=== PATIENT | male | born 1965 | race Caucasian/White ===

== ENCOUNTER 2017-01-04 07:20 | Observation (INO) ==
--- NOTE | 2017-01-04 07:30 | Emergency Department Note ---
Disposition Clinical Impression: Respiratory alkalosis, Exertional dyspnea Disposition: Admitted As Inpatient Condition: Good Referrals: NONE,PCP [Primary Care Provider] - Forms: ED Satisfaction Letter Time of Disposition: 10:55 SOB HPI - General Chief Complaint: ED Shortness of Breath/Dyspnea Stated Complaint: BRIT Time Seen by Provider: 01/04/17 07:25 Source: patient, family, EMS Mode of arrival: EMS Limitations: no limitations Nursing Notes Reviewed: Yes Vital Signs Reviewed: Yes - History of Present Illness 51-year-old previous history of heart or lung disease this had shortness of breath for a couple months. Saw his family doctor they did a stress test which was negative. Today he felt like he could not breathe he did have some vomiting last night and this morning he is very short of breath says he doesn't feel like eating get air into his lungs. Patient denies any chest pain. Patient's tachycardic and tachypneic on arrival. Patient denies any history of blood clots. He denies any risk factors for blood clots. Pt Subjective Complaint: shortness of breath Onset (ago): Just INTENSIVE CARE NURSE Severity: moderate, severe Consistency/Duration: constant Improves with: nothing Worsens with: exertion Associated symptoms: Denies: chest pain Treatment prior to arrival: none Cough present: No - Related Data Allergies Allergy/AdvReac Type Severity Reaction Status Date / Time No Known Allergies Allergy Verified 09/06/15 08:44 All systems ED: reviewed and negative except as stated. Constitutional: Denies: fever, chills, weakness, weight change Eyes: Denies: eye pain, eye discharge, vision change ENT ED: Denies: ear pain, throat pain, dental pain, hearing loss, epistaxis, congestion, dysphagia Cardiovascular: Reports: dyspnea on exertion. Denies: chest pain, palpitations , edema, syncope Respiratory: Reports: dyspnea. Denies: cough, wheezes, hemoptysis, stridor Gastrointestinal: Reports: nausea, vomiting. Denies: abdominal pain, diarrhea, constipation, hematemesis, melena, hematochezia Genitourinary: Denies: urgency, dysuria, frequency, hematuria Musculoskeletal: Denies: back pain, neck pain, arthralgia, myalgia Integumentary: Denies: rash, abrasion, lesions Neurological: Denies: headache, weakness, numbness, paresthesias, confusion, abnormal gait, vertigo Psychiatric: Denies: anxiety, depression, suicidal thoughts, homicidal thoughts , auditory hallucinations, visual hallucinations Endocrine: Denies: fatigue Hematological/Lymphatic: Denies: easy bleeding, easy bruising Allergic/Immunologic: Denies: facial swelling, urticaria Past Medical History - Past Medical History Surgical history: Reports: cholecystectomy, herniorrhaphy Psychiatric history: Reports: no psych history - Social History Smoking Status: Unknown if ever smoked Smokeless Tobacco Status: No Alcohol use: Reports: occasionally Physical Exam - General Limitations: no limitations General appearance: alert, in no apparent distress - Head Head exam: atraumatic, normocephalic, normal inspection - Eye Eye exam: Present: normal appearance, PERRL, EOMI - ENT ENT exam: normal exam, normal oropharynx, mucous membranes moist - Neck Neck exam: Present: normal inspection, full ROM, trachea midline - Chest Chest inspection: Present: normal inspection, symmetric chest wall rise - Respiratory Respiratory exam: Present: normal lung sounds bilaterally, other (Male) - Cardiovascular Cardiovascular exam: Present: tachycardia - Abdominal Exam Abdominal exam: Present: soft, Non-Tender. Absent: tenderness, distention, guarding, rebound, rigidity - Extremities Exam Extremities exam: Present: normal inspection, full ROM. Absent: tenderness, pedal edema - Expanded Lower Extremity Exam Neurovascular/Tendon exam: Absent: motor deficit, sensory deficit, tendon deficit Gait: not tested/not observed - Back Exam Back exam: Present: normal inspection, full ROM. Absent: tenderness - Neurological Exam Neurological exam: Present: alert, oriented X3 - Psychiatric Psychiatric exam: Present: normal affect, normal mood - Skin Skin exam: Present: warm, dry, intact, normal color Course - Reevaluation(s) Reevaluation #1: 51-year-old who comes in with significant shortness of breath although he says she's had shortness of breath for about 2 months who is tachycardic and very dyspneic. Concern in the differential would be a pulmonary embolism we'll go ahead and treat him prophylactically with heparin while we obtain the CTA. Denies any bleeding episodes no hemoptysis. Time: 07:36 Reevaluation #2: Patient vital signs improved significantly we did get a blood gas showed a pH of 7.61 and a low CO2 consistent with a hyperventilation. He slowed his breathing down we did give him a little Ativan to relax him and his heart rate came down to 98. His lactate is elevated at 7.2 he was very agitated when he arrived. His vitals otherwise were stable his blood pressure was normal. Does have an elevated white count of 15 4. Point we are not going to give him 30 ML' s per kilogram based on normal blood pressure and markedly improved heart rate. Time: 08:16 Reevaluation #3: Repeat lactate was 1.5. Patient does have exertional dyspnea for the last month rather go ahead and admit. Hospital's request that we get a repeat blood gas and a urine tox screen. Time: 10:52 - Consultations Consultation #1: Discussed with Dr. Upton, admit. Time: 10:53 Vital Signs Temperature 97.8 F 01/04/17 07:23 Pulse Rate 126 01/04/17 07:23 Respiratory Rate 26 01/04/17 07:23 Blood Pressure 121/68 01/04/17 07:23 O2 Sat by Pulse Oximetry 98 01/04/17 07:23 Temperature 97.8 F 01/04/17 07:23 Pulse Rate 114 01/04/17 10:28 Respiratory Rate 20 01/04/17 10:28 Blood Pressure 123/77 01/04/17 10:28 O2 Sat by Pulse Oximetry 98 01/04/17 10:28 Oxygen Delivery Oxygen Delivery Room Air Shortness of Breath/Dyspnea - Lab Data Result diagrams: 01/04/17 07:44 01/04/17 07:44 Lab Results 01/04/17 01/04/17 01/04/17 Range/Units 07:40 07:44 07:44 WBC 15.4 H (4.3-11.1) K/mcL RBC 5.31 (4.19-5.50) M/mcL Hgb 16.2 (12.9-16.9) g/dL Hct 45.1 (37.5-50.1) % MCV 84.9 (83.0-100.0) fL MCH 30.5 (28.0-33.3) pg MCHC 35.9 H (31.6-35.5) g/dL RDW 12.0 (11.5-14.5) % Plt Count 259 (140-400) K/mcL MPV 8.9 L (9.4-12.4) fL Immature Gran % 0.5 (0-4) % Seg Neutrophils % 81.9 % Lymphocytes % 14.5 % Monocytes % 2.7 % Eosinophils % 0.1 % Basophils % 0.3 % Neutrophils # 12.6 H (1.6-8.9) K/mcL Lymphocytes # 2.2 (0.6-4.6) K/mcL Monocytes # 0.4 (0.0-1.3) K/mcL Eosinophils # 0.0 (0.0-0.6) K/mcL Basophils # 0.0 (0.0-0.2) K/mcL PT (9.4-12.1) Seconds INR APTT (26.0-36.0) Seconds D-Dimer (0-500) ng/mLFEU ABG pH 7.61 H* (7.32-7.45) pH Units ABG pCO2 15 L* (35-45) mmHg ABG pO2 128 H (85-104) mmHg ABG HCO3 15.1 L (21-27) mEQ/L ABG Total CO2 15.6 L (20-26) mEq/L ABG O2 Saturation 99 H (95-98) % ABG Base Excess -2.3 L (-2.0 to 3.0) mEq/L Carboxyhemoglobin 1.1 (0-5) % Liter Flow 3 L/MIN Blood Gas Modality NC Sodium 138 (136-145) mEq/L Potassium 3.5 (3.5-4.5) mEq/L Chloride 100 (98-109) mEq/L Carbon Dioxide 17 L (19-29) mEq/L BUN 17 (8-26) mg/dL Creatinine 1.25 (0.72-1.25) mg/dL Est GFR ( Amer) > 60 (> 60) Est GFR (Non-Af Amer) > 60 (> 60) BUN/Creatinine Ratio 14 (6-26) Glucose 205 H (70-99) mg/dL Calculated Osmolality 293 (280-300) Lactic Acid (0.5-2.2) mmol/L Calcium 9.8 (8.6-10.8) mg/dL Total Bilirubin 0.7 (0.2-1.2) mg/dL Direct Bilirubin 0.3 (0.0-0.5) mg/dL Indirect Bilirubin 0.4 (0.0-1.2) mg/dL AST 37 H (5-34) Units/L ALT 41 (0-55) Units/L Alkaline Phosphatase 96 (38-126) Units/L Troponin I (0-0.03) ng/mL B-Natriuretic Peptide (0-100) pg/mL Serum Total Protein 8.0 (6.0-8.3) g/dL Albumin 4.3 (3.5-5.0) g/dL Globulin 3.7 H (2.4-3.5) g/dL Albumin/Globulin Ratio 1.2 (1.1-2.2) 01/04/17 01/04/17 01/04/17 Range/Units 07:44 07:44 07:44 WBC (4.3-11.1) K/mcL RBC (4.19-5.50) M/mcL Hgb (12.9-16.9) g/dL Hct (37.5-50.1) % MCV (83.0-100.0) fL MCH (28.0-33.3) pg MCHC (31.6-35.5) g/dL RDW (11.5-14.5) % Plt Count (140-400) K/mcL MPV (9.4-12.4) fL Immature Gran % (0-4) % Seg Neutrophils % % Lymphocytes % % Monocytes % % Eosinophils % % Basophils % % Neutrophils # (1.6-8.9) K/mcL Lymphocytes # (0.6-4.6) K/mcL Monocytes # (0.0-1.3) K/mcL Eosinophils # (0.0-0.6) K/mcL Basophils # (0.0-0.2) K/mcL PT (9.4-12.1) Seconds INR APTT (26.0-36.0) Seconds D-Dimer (0-500) ng/mLFEU ABG pH (7.32-7.45) pH Units ABG pCO2 (35-45) mmHg ABG pO2 (85-104) mmHg ABG HCO3 (21-27) mEQ/L ABG Total CO2 (20-26) mEq/L ABG O2 Saturation (95-98) % ABG Base Excess (-2.0 to 3.0) mEq/L Carboxyhemoglobin (0-5) % Liter Flow L/MIN Blood Gas Modality Sodium (136-145) mEq/L Potassium (3.5-4.5) mEq/L Chloride (98-109) mEq/L Carbon Dioxide (19-29) mEq/L BUN (8-26) mg/dL Creatinine (0.72-1.25) mg/dL Est GFR ( Amer) (> 60) Est GFR (Non-Af Amer) (> 60) BUN/Creatinine Ratio (6-26) Glucose (70-99) mg/dL Calculated Osmolality (280-300) Lactic Acid 7.2 H* (0.5-2.2) mmol/L Calcium (8.6-10.8) mg/dL Total Bilirubin (0.2-1.2) mg/dL Direct Bilirubin (0.0-0.5) mg/dL Indirect Bilirubin (0.0-1.2) mg/dL AST (5-34) Units/L ALT (0-55) Units/L Alkaline Phosphatase (38-126) Units/L Troponin I 0.01 (0-0.03) ng/mL B-Natriuretic Peptide < 10 (0-100) pg/mL Serum Total Protein (6.0-8.3) g/dL Albumin (3.5-5.0) g/dL Globulin (2.4-3.5) g/dL Albumin/Globulin Ratio (1.1-2.2) 01/04/17 01/04/17 Range/Units 07:44 10:07 WBC (4.3-11.1) K/mcL RBC (4.19-5.50) M/mcL Hgb (12.9-16.9) g/dL Hct (37.5-50.1) % MCV (83.0-100.0) fL MCH (28.0-33.3) pg MCHC (31.6-35.5) g/dL RDW (11.5-14.5) % Plt Count (140-400) K/mcL MPV (9.4-12.4) fL Immature Gran % (0-4) % Seg Neutrophils % % Lymphocytes % % Monocytes % % Eosinophils % % Basophils % % Neutrophils # (1.6-8.9) K/mcL Lymphocytes # (0.6-4.6) K/mcL Monocytes # (0.0-1.3) K/mcL Eosinophils # (0.0-0.6) K/mcL Basophils # (0.0-0.2) K/mcL PT 10.3 (9.4-12.1) Seconds INR 1.0 APTT 22.3 L (26.0-36.0) Seconds D-Dimer 439 (0-500) ng/mLFEU ABG pH (7.32-7.45) pH Units ABG pCO2 (35-45) mmHg ABG pO2 (85-104) mmHg ABG HCO3 (21-27) mEQ/L ABG Total CO2 (20-26) mEq/L ABG O2 Saturation (95-98) % ABG Base Excess (-2.0 to 3.0) mEq/L Carboxyhemoglobin (0-5) % Liter Flow L/MIN Blood Gas Modality Sodium (136-145) mEq/L Potassium (3.5-4.5) mEq/L Chloride (98-109) mEq/L Carbon Dioxide (19-29) mEq/L BUN (8-26) mg/dL Creatinine (0.72-1.25) mg/dL Est GFR ( Amer) (> 60) Est GFR (Non-Af Amer) (> 60) BUN/Creatinine Ratio (6-26) Glucose (70-99) mg/dL Calculated Osmolality (280-300) Lactic Acid 1.5 (0.5-2.2) mmol/L Calcium (8.6-10.8) mg/dL Total Bilirubin (0.2-1.2) mg/dL Direct Bilirubin (0.0-0.5) mg/dL Indirect Bilirubin (0.0-1.2) mg/dL AST (5-34) Units/L ALT (0-55) Units/L Alkaline Phosphatase (38-126) Units/L Troponin I (0-0.03) ng/mL B-Natriuretic Peptide (0-100) pg/mL Serum Total Protein (6.0-8.3) g/dL Albumin (3.5-5.0) g/dL Globulin (2.4-3.5) g/dL Albumin/Globulin Ratio (1.1-2.2) - EKG Data EKG attestation: Yes I reviewed and interpreted this EKG. EKG shows normal: Reports: sinus rhythm Rate: Reports: tachycardia Rhythm: Reports: NSR Interpretation: Reports: no acute changes
[2017-01-04] MEDS ORDERED: *HR* Heparin 5,000 UNIT/ML VIAL IVP ONE (07:31)
[2017-01-04] MEDS ORDERED: *HR* Heparin 5,000 UNIT/ML VIAL IVP PRN (07:31)
[2017-01-04] MEDS ORDERED: *HR* LORazepam 2 MG/ML VIAL IVP ONE (07:33)
[2017-01-04] MEDS ORDERED: Ondansetron 4 MG/2 ML VIAL IVP ONE (07:33)
[2017-01-04] MEDS ORDERED: Heparin 25,000 UNIT/500 ML D5W 25,000 UNIT/500 ML MLS IVC SCH (07:45)
[2017-01-04 07:50] LABS: ABG Base Excess -2.3 mEq/L (-2.0 to 3.0); ABG HCO3 15.1 mEQ/L (21-27); ABG Oxygen Saturation 99 % (95-98); ABG PO2 128 mmHg (85-104); ABG TCO2 15.6 mEq/L (20-26); Carboxyhemoglobin 1.1 % (0-5)
[2017-01-04 07:51] LABS: Blood Gas Liter Flow 3 L/MIN
[2017-01-04 07:53] LABS: ABG PCO2 15 mmHg (35-45)
[2017-01-04 07:54] LABS: ABG PH 7.61 pH Units (7.32-7.45)
[2017-01-04 07:55] LABS: Basophils % 0.3 %; Eosinophils % 0.1 %; Hematocrit 45.1 % (37.5-50.1); Hemoglobin 16.2 g/dL (12.9-16.9); Immature Granulocytes % 0.5 % (0-4); Lymphocytes # 2.2 K/mcL (0.6-4.6); Lymphocytes % 14.5 %; Mean Corpuscular HGB Conc 35.9 g/dL (31.6-35.5); Mean Corpuscular Hemoglobin 30.5 pg (28.0-33.3); Mean Corpuscular Volume 84.9 fL (83.0-100.0); Mean Platelet Volume 8.9 fL (9.4-12.4); Monocytes # 0.4 K/mcL (0.0-1.3); Monocytes % 2.7 %; Neutrophils # 12.6 K/mcL (1.6-8.9); Platelet Count 259 K/mcL (140-400); Red Blood Count 5.31 M/mcL (4.19-5.50); Segmented Neutrophils % 81.9 %
[2017-01-04 08:10] LABS: Alanine Aminotransferase 41 Units/L (0-55); Albumin 4.3 g/dL (3.5-5.0); Albumin/Globulin Ratio 1.2 (1.1-2.2); Alkaline Phosphatase 96 Units/L (38-126); Aspartate Amino Transferase 37 Units/L (5-34); BUN/Creatinine Ratio 14 (6-26); Bilirubin,Direct 0.3 mg/dL (0.0-0.5); Bilirubin,Indirect 0.4 mg/dL (0.0-1.2); Bilirubin,Total 0.7 mg/dL (0.2-1.2); Blood Urea Nitrogen 17 mg/dL (8-26); Calcium 9.8 mg/dL (8.6-10.8); Carbon Dioxide 17 mEq/L (19-29); Chloride 100 mEq/L (98-109); Globulin 3.7 g/dL (2.4-3.5); Glucose 205 mg/dL (70-99); Osmolality,Calculated 293 (280-300); Potassium 3.5 mEq/L (3.5-4.5); Prothrombin Time 10.3 Seconds (9.4-12.1); Sodium 138 mEq/L (136-145); eGFR For African Americans > 60 (> 60); eGFR For Non-African Americans > 60 (> 60)
[2017-01-04 08:12] LABS: Activated Partial Thrombo Time 22.3 Seconds (26.0-36.0)
[2017-01-04] MEDS ORDERED: Vancomycin 1,000 MG in D5% in Water 250 ML IVPB ONE (08:18)
[2017-01-04] MEDS ORDERED: Piperacillin/Tazobactam 3.375 GM in D5% in Water (Mini-Bag+) 100 ML IVPB ONE (08:18)
[2017-01-04 11:10] LABS: Acetaminophen < 1.0 mcg/mL (10-30); Salicylate < 5.0 mg/dL (15-30)
[2017-01-04 11:18] LABS: ABG Base Excess -0.1 mEq/L (-2.0 to 3.0); ABG HCO3 22.3 mEQ/L (21-27); ABG Oxygen Saturation 98 % (95-98); ABG PCO2 30 mmHg (35-45); ABG PH 7.48 pH Units (7.32-7.45); ABG PO2 94 mmHg (85-104); ABG TCO2 23.2 mEq/L (20-26); Blood Gas FiO2 32 %; Blood Gas Liter Flow 3 L/MIN
[2017-01-04] MEDS ORDERED: Naloxone 0.4 MG/ML INJ IVP PRN (11:48)
[2017-01-04] MEDS ORDERED: Ondansetron 4 MG/2 ML VIAL IVP PRN (11:50)
[2017-01-04] MEDS ORDERED: Acetaminophen 325 MG TABLET PO PRN (11:50)
[2017-01-04] MEDS ORDERED: *HR* LORazepam 0.5 MG TABLET PO PRN (11:52)
--- NOTE | 2017-01-04 11:55 | Internal Med History&Physical ---
<Martina Weiner - Last Filed: 01/04/17 12:22> Date of Encounter: 01/04/17 Time of Encounter: 11:54 Assessment and Plan (1) Hyperventilation syndrome Current visit: Yes Status: Acute 1 patient presented Tachycardic, tachypneic ABG-respiratory alkalosis pH of 7.6 bicarbonate was 15-suspect this is related to anxiety. Patient was given Ativan as well as oxygen ABG improved as well as her respiratory state and heart rate. His chest x-rays negative CTA negative for PE. We will continue with Ativan as needed 2 oxygen titrate to maintain SPO2 greater than 90% 3 we will trend troponins 4 we will check echo (2) Bronchitis Current visit: Yes Status: Acute 1 patient did have elevated white count at 15.4 chest x-ray was clear CTA was negative for PE he has had a nonproductive cough we will continue with Levaquin 2 bronchodilators 3 oxygen as needed to maintain SPO2 greater than 92% 4 monitor CBC (3) TRINITY (obstructive sleep apnea) Current visit: No Status: Chronic 1 we will continue with CPAP Internal Medicine - H&P: HPI Chief complaint: SOB Admitted From: Emergency Dept Plans for Post Hospital Care: Home History of present illness: Mr. Golden is a 51 year old male with past medical history obstructive sleep apnea. He has been experiencing increasing shortness of breath for past couple months. He did follow up with his family doctor and had an cardiac stress test which was negative. Last night he did have episode of nausea and vomiting vomiting presently 4 times undigested food. Denies any fevers chills diarrhea chest pain palpitations or abdominal pain. This a.m. patient was awakened having some difficulty breathing. He denies any chest pain or palpitations at the time. Upon arrival to the ER patient was tachycardic and tachypneic. Denied any past history of blood clots or PE. ABG was obtained which was alkalotic. PH was 7.6 O2 128 PCO2 was 15 bicarbonate was 15,009%. Lab work revealed a day after meals 15.4 bicarbonate was 17. Patient was initiated on heparin and CTA was performed rule out PE. Which it was negative. Chest x-ray appeared clear. Patient was given some Ativan which did improve his respiratory status as well as tachycardia. He was given IV fluids as well as antibiotics blood cultures were obtained. He has been admitted for further workup and evaluation. Presently patient does not appear to be in respiratory distress denies any chest pain. He does admit to occasional palpitations in the past as well as exertional dyspnea. He denied any drug use or new medication, however he did admit to that he did take a Viagra last night. Presently has lung sounds are clear heart sounds are regular S1 and S2 with no rubs clicks, murmurs noted abdomen soft and nontender no pedal edema noted he sometimes tach on the monitor he continue with no ST-T wave abnormalities. Past Med Surg Social Fam HX - Past Medical History Medical history: other Psychiatric history: no psych history - Past Surgical History Surgical History: cholecystectomy, herniorrhaphy - Social History Smoking Status: Unknown if ever smoked Smokeless Tobacco Status: No Alcohol use: occasionally Drug use: none - Family History Father Living Status: Cause of : Brain cancer Internal Medicine - H&P: Meds No Known Home Drugs 01/04/17 [History] Allergies No Known Allergies Allergy (Verified 01/04/17 11:23) All Systems PM: A 10-system review of systems was performed and is negative for pertinent findings except as documented above in the HPI. - Constitutional Constitutional: no chills, no fever(s), no night sweats - EENT Eyes: no change in vision, no discharge, no pain, no photophobia Ears: no ear discharge, no ear pain, no tinnitus Nose, mouth and throat: no dysphagia, no nasal discharge, no neck pain, no sore throat - Cardiovascular Cardiovascular ROS IM: no chest pain, no diaphoresis, no dyspnea, no lightheadedness, no palpitations, no syncope - Respiratory Respiratory: cough, dyspnea - Gastrointestinal Gastrointestinal: no abdominal pain, no diarrhea, no hematemesis, no hematochezia, no melena, no nausea, no vomiting - Musculoskeletal Musculoskeletal ROS IM: no numbness, no tingling - Integumentary Integumentary IM: no rash, no unusual bruising - Neurological Neurological ROS: no confusion, no convulsions, no focal weakness, no numbness, no tingling, no tremor(s) - Hematologic/Lymphatic Hematologic/Lymphatic: no easy bruising - Constitutional Vitals: Temp Pulse Resp BP Pulse Ox 97.8 F 114 20 123/77 98 01/04/17 07:23 01/04/17 10:28 01/04/17 11:39 01/04/17 11:39 01/04/17 10:28 General appearance: Present: A&O X 3, answers questions appropriately - Head Head exam: Present: atraumatic, normocephalic - Eye Eye exam: Present: PERRL, conjuntiva pink, sclera anicteric Pupils: Present: PERRL - Neck Neck exam general surgery: Present: supple, trachea midline. Absent: lymphadenopathy - Respiratory Respiratory exam: Present: CTAB. Absent: accessory muscle use, rales, rhonchi, wheezes - Cardiovascular Cardiovascular exam: Present: RRR, +S1, +S2. Absent: diastolic murmur, gallop, rubs, systolic murmur - GI/Abdominal GI/Abdominal exam: Present: normal bowel sounds, soft, no peritoneal signs. Absent: distended, tenderness - Extremities Exam Extremities exam: Present: warm, radial pulses palpable and symetrical. Absent : calf tenderness, cyanotic, pedal edema - Neurological Exam Neurological exam: Present: CN II-XII intact, oriented X3, no focal deficits. Absent: pronater drift, facial droop, speech deficit - Skin Skin exam: Present: dry, intact Internal Med - H&P Results - Labs CBC & Chem 7: 01/04/17 07:44 01/04/17 07:44 - EKG Data EKG shows normal: sinus rhythm Rate: tachycardia - Diagnostic Studies Other Images Additional comments: Chest X-Ray 01/04/17 07:25 IMPRESSION: No acute cardiopulmonary abnormality. D/ / Tye Bolaños MD / Tye Bolaños MD Interpreting Provider: Tye Bolaños MD Chest CTA 01/04/17 07:27 IMPRESSION: Study is motion compromised with no central pulmonary embolus. Segmental and subsegmental levels are limited but no gross abnormality noted. Incidental note of 4 mm noncalcified nodule. Recommend follow-up as below. RECOMMENDATIONS: Fleischner Society guidelines for follow-up and management of pulmonary nodules: Nodule size less than or equal to 4 mm: In a low-risk patient, no follow-up needed. In a high-risk patient, follow-up CT at 12 months; if unchanged, no further follow-up. Low risk patients include individuals with minimal or absent history of smoking and other known risk factors. High risk patients include individuals with a history of smoking or other known risk factors. Radiology 2005; [id number] D/ / 01/04/2017 09:30:56 Lawson Cadena MD / Tanya Lee Interpreting Provider: Lawson Cadena MD <Judith Srinivasan - Last Filed: 01/04/17 14:44> Date of Encounter: 01/04/17 Internal Medicine - H&P: HPI History of present illness: Mr. Golden is a 51 year old male All Systems PM: A 10-system review of systems was performed and is negative for pertinent findings except as documented above in the HPI. - Constitutional Vitals: Temp Pulse Resp BP Pulse Ox 98.7 F 111 14 126/83 100 01/04/17 12:56 01/04/17 12:56 01/04/17 12:56 01/04/17 12:56 01/04/17 12:56 Internal Med - H&P Results - Labs CBC & Chem 7: 01/04/17 07:44 01/04/17 07:44 - Attending Attestation I have personally performed a face to face evaluation on this patient and I discussed the assessment and plan with the nurse practitioner. I have reviewed and agree with the documented care plan. History and Exam by me shows: Mr. Golden is a 51 year old male with past medical history obstructive sleep apnea. He has been experiencing increasing shortness of breath for past couple months. He did follow up with his family doctor and had an cardiac stress test which was negative. Last night he did have episode of nausea and vomiting vomiting presently 4 times undigested food. Denies any fevers chills diarrhea chest pain palpitations or abdominal pain. This a.m. patient was awakened having some difficulty breathing. He denies any chest pain or palpitations at the time. Upon arrival to the ER patient was tachycardic and tachypneic. Denied any past history of blood clots or PE. ABG was obtained which was alkalotic. PH was 7.6 O2 128 PCO2 was 15 bicarbonate was 15,009%. Lab work revealed a day after meals 15.4 bicarbonate was 17. Patient was initiated on heparin and CTA was performed rule out PE. Which it was negative. Chest x-ray appeared clear. Patient was given some Ativan which did improve his respiratory status as well as tachycardia. He was given IV fluids as well as antibiotics blood cultures were obtained. Pt stated his SOB also better now Gen: A, A, O x3 Chest : Mild wheezing, no crackles / rales.. No rhonchi.. Diminished BS b/l basal region Heart : S1 S2 + RRR, No murmurs a/p 1. Acute respiratory alkalosis due to severe hyperventilation syndrome 2. Acute anxiety Cont Ativan PRN cont duoneb and O2 cont close monitoring 3. Acute lactic acidosis could be due to his last night Viagra intake which resolved now will avoid any nitro medications while he is here 4. Acute bronchitis - mostly bacterial 5. Acute reactive airway disease no need of steroids cont duoneb PRN may need out pt PFT
[2017-01-04] MEDS ORDERED: Albuterol 2.5 MG/3 ML NEBULIZER IH PRN (12:20)
[2017-01-04] MEDS: 0.9 % Sodium Chloride 1,000 ML IVC SCH ×2 (12:30→23:49)
[2017-01-04] MEDS ORDERED: Levofloxacin 500 MG/100 ML 500 MG/100 ML BAG IVPB SCH (13:00)
[2017-01-04] MEDS: Ipratropium/Albuterol Neb 3 ML IH SCH ×2 (16:00→22:03)
[2017-01-04 21:57] LABS: Bilirubin,Urine Negative (Negative); Blood,Urine Negative (Negative); Clarity,Urine Clear (Clear); Color,Urine Yellow (Yellow); Glucose,Urine (UA) Normal (Normal); Ketones,Urine 40 mg/dL (Negative); Leukocyte Esterase,Urine Negative (Negative); Nitrite,Urine Negative (Negative); Protein,Urine Negative (Neg-Trace); Specific Gravity,Urine > 1.030 (1.010-1.025); Urobilinogen,Urine Normal (Normal)
[2017-01-04 22:02] LABS: Amphetamine Screen,Urine Negative ng/mL (Cutoff=1000); Barbiturate Screen,Urine Negative ng/mL (Cutoff=200); Benzodiazepines Screen,Urine Negative ng/mL (Cutoff=200); Cannabinoid Screen,Urine Negative ng/mL (Cutoff = 50); Cocaine Screen,Urine Negative ng/mL (Cutoff= 300); Opiate Screen,Urine Negative ng/mL (Cutoff=300); Phencyclidine Screen,Urine Negative ng/mL (Cutoff=25)
[2017-01-05 01:02] LABS: Basophils % 0.2 %; Eosinophils # 0.1 K/mcL (0.0-0.6); Eosinophils % 0.5 %; Hematocrit 38.5 % (37.5-50.1); Immature Granulocytes % 0.3 % (0-4); Lymphocytes # 1.9 K/mcL (0.6-4.6); Lymphocytes % 20.1 %; Mean Corpuscular HGB Conc 35.3 g/dL (31.6-35.5); Mean Corpuscular Hemoglobin 30.6 pg (28.0-33.3); Mean Corpuscular Volume 86.7 fL (83.0-100.0); Mean Platelet Volume 8.7 fL (9.4-12.4); Monocytes # 0.6 K/mcL (0.0-1.3); Monocytes % 6.7 %; Neutrophils # 6.8 K/mcL (1.6-8.9); Platelet Count 162 K/mcL (140-400); Red Blood Count 4.44 M/mcL (4.19-5.50); Red Cell Distribution Width 12.3 % (11.5-14.5); Segmented Neutrophils % 72.2 %
[2017-01-05 01:04] LABS: Hemoglobin 13.6 g/dL (12.9-16.9)
[2017-01-05 01:16] LABS: BUN/Creatinine Ratio 12 (6-26); Blood Urea Nitrogen 13 mg/dL (8-26); Calcium 8.5 mg/dL (8.6-10.8); Carbon Dioxide 25 mEq/L (19-29); Chloride 104 mEq/L (98-109); Chol/HDL Ratio 5.7 (0-4.9); Cholesterol 171 mg/dL (< 200); Glucose 133 mg/dL (70-99); HDL Cholesterol 30 mg/dL (40-59); LDL Cholesterol,Calculated 103 mg/dL (0-99); Magnesium 1.9 mg/dL (1.6-2.6); Osmolality,Calculated 284 (280-300); Potassium 3.3 mEq/L (3.5-4.5); Sodium 136 mEq/L (136-145); Triglycerides 192 mg/dL (< 150); eGFR For African Americans > 60 (> 60); eGFR For Non-African Americans > 60 (> 60)
[2017-01-05] MEDS: Ipratropium/Albuterol Neb 3 ML IH SCH ×2 (05:12→10:56)
[2017-01-05] MEDS ORDERED: *HR* Heparin 5,000 UNIT/ML VIAL SQ SCH (09:00)
[2017-01-05] MEDS: 0.9 % Sodium Chloride 1,000 ML IVC SCH (09:56)
[2017-01-05 11:20] VITALS: BP 128/74
[2017-01-05] MEDS ORDERED: levoFLOXacin 500 MG TABLET PO SCH (13:00)
--- NOTE | 2017-01-05 13:58 | Discharge Summary ---
<Michael Baumann - Last Filed: 01/05/17 15:56> Date of Encounter: 01/05/17 Time of Encounter: 13:52 - Discharge Diagnosis (1) Hyperventilation syndrome Priority: Primary Status: Acute (2) Bronchitis Priority: Secondary Status: Acute (3) TRINITY (obstructive sleep apnea) Priority: Secondary Status: Chronic - Discharge Medications Prescriptions: levoFLOXacin [Levaquin] 500 mg PO Q24H #3 tab Home Medications: levoFLOXacin [Levaquin] 500 mg PO Q24H #3 tab 01/05/17 [Rx] Allergies/Adverse Reactions: Allergies No Known Allergies Allergy (Verified 01/04/17 11:23) Procedures/tests Complete & Pending: Procedures Performed prior 72 hours Category Date Time Status ECG 12 lead ECG [ECG] AM 0600 Y 01/05/17 06:00 Ordered EV echocardiogram Routine Y 01/04/17 11:53 Completed Date of admission: 01/04/17 11:21 Primary care physician: PCP NONE - Patient Status Disposition: Home, Self-Care Condition: Good Functional capacity at discharge: independent ambulation Overall status at discharge: patient is progressing back to baseline - Ambulatory Orders Ambulatory Orders: SP PFT screen Time Frame: 4 Weeks, Facility: [facility], Location: Cardiopulmonary Svc - Discharge Instructions Follow Up With: Kvng Frye Jr, MD [Non-Partnered Physician] - 01/12/17 11:00 am Additional Instructions: Follow up with primary care doctor within one week of discharge. Please continue levaquin course please get pulmonary function testing done within 4 weeks of discharge return to ED if symptoms return, or if you develop chest pain, shortness of breath, fever, chills - Diet and Activity Activity: increase activity as tolerated Diet: low fat, low cholesterol Hospital course: Mr. Golden is a 51 year old male with PMHx of TRINITY (on CPAP at home). patient arrived to [facility] on 01/04/17 with CC of increasing shortness of breath for the past couple months. He did have stress test done outpatient which was negative. his shortness of breath was progressively worsening, which caused him to come to the emergency department for further evaluation. upon arrival to ED, he was tachycardic, tachypneic. ABG showed respiratory alkalosis. CTA was done to rule out PE and was negative. There was an incidental 4mm noncalcified nodule on his CT. patient denies history of smoking. CXR showed no acute abnormality. Echocardiogram showed LVEF 65-70%, indeterminate diastolic function, no pulmonary HTN, no significant valvular dysfunction. patient was diagnosed with bronchitis and was started on levaquin. his symptoms continued to improve during his hospital stay. 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 Histoplasmosis antigen was ordered, but is a send out lab. He can follow up with his PCP to go over the results. patient remained stable during the course of his hospital stay and was stable upon discharge. Patient was also instructed to follow up with PCP, finish levaquin course, and get PFTs done as outpatient. He expressed understanding. - Time Spent with Patient Total time spent providing and/or coordinating discharge services: - Constitutional Vitals: Temp Pulse Resp BP Pulse Ox 97.9 F 102 18 128/74 97 01/05/17 11:16 01/05/17 11:16 01/05/17 11:16 01/05/17 11:16 01/05/17 11:16 General appearance: Present: A&O X 3, answers questions appropriately - Head Head exam: Present: atraumatic, normocephalic - Neck Neck exam general surgery: Present: supple, trachea midline - Respiratory Respiratory exam: Present: CTAB - GI/Abdominal GI/Abdominal exam: Present: soft - Extremities Exam Extremities exam: Present: radial pulses palpable and symetrical. Absent: cyanotic, pedal edema - Psychiatric Psychiatric exam: Present: normal affect, normal mood - Skin Skin exam: Present: intact. Absent: petechiae, rash, urticaria <Armen Woods T - Last Filed: 01/05/17 16:36> Date of Encounter: 01/05/17 Procedures/tests Complete & Pending: Procedures Performed prior 72 hours Category Date Time Status ECG 12 lead ECG [ECG] AM 0600 Y 01/05/17 06:00 Ordered EV echocardiogram Routine Y 01/04/17 11:53 Completed Date of admission: 01/04/17 11:21 Primary care physician: PCP NONE Hospital course: Mr. Golden is a 51 year old male - Time Spent with Patient Total time spent providing and/or coordinating discharge services: - Constitutional Vitals: Temp Pulse Resp BP Pulse Ox 97.9 F 102 18 128/74 97 01/05/17 11:16 01/05/17 11:16 01/05/17 11:16 01/05/17 11:16 01/05/17 11:16 - Attending Attestation I examined this patient and my medical decision-making was reviewed with the Resident Physician on 01/05/17. I agree with the documented findings, disposition and treatment plan as described except to the extent set forth below. Seen and evaluated at bedside 51 YO M with TRINITY and chronic dyspnea, presented with acute on chronic shortness of breath, as well as dry cough Patient is concerned for exposure to bats since September this year, and was concerned for histoplasmosis His work up on admission was significant for polycythemia and leukocytosis, his UA showed elevated SG and ketones, and his ABG showed respiratory alkalosis. His chest imaging was unremarkable , save for a 4mm calcified nodule, patient is a never smoker Patient is clinically stable and has no physical exam findings He denies illicit drug use his toxicology was negative he was managed with Levaquin and nebs He has had a negative cardiac work up with his PCP and a repeat ECHO done here was unremarkable He is stable to be discharged home to follow up with PCP We did send a Histoplasma Ag, and patient will be notified should the result be significant We also recommended a PFT as out patient rest of details as in resident physician's documentation
--- NOTE | 2017-01-06 16:19 | Electrocardiograph Report ---
[facility] Test Date: 2017-01-04 Pat Name: Ramon Golden Department: 103 Room: 2A25 Gender: M [employer] Manager: [facility] : 1965 Requested By: Jonnathan Dee Order Number: [id number] Reading MD: Doris Beth DO Measurements Intervals [place] Rate: 135 P: 59 AL: 137 QRS: 45 QRSD: 93 T: 19 QT: 310 QTc: 389 Interpretive Statements SINUS TACHYCARDIA ABNORMAL RHYTHM ECG Electronically Signed On 01-06-2017 16:17:34 EDT by Doris Beth DO
== END 2017-01-05 14:53 | disposition home or self-care (01) ==
LOC: 2ANU 07:21 → EMEROO 07:21 → 2ANU 11:50
PROVIDERS: ADMIT Family Medicine; ATTEND Internal Medicine